=== PATIENT | male | born 1945 | race Caucasian/White ===

== ENCOUNTER 2017-10-13 16:22 | Inpatient (IN) | payer MEDICARE ==
[~2017-10-13] VITALS: Ht 172.7 cm; Wt 95.6 kg
[~2017-10-13 16:22] MED LIST: ALLO100T PO; AMLO5TAB2 PO; AMOX1TAB16 PO; BENADRYL PO; CHOL200013 PO; CLARITIN PO; EPOETIN ALFA SQ; FENO45CA2 PO; FERS325 PO; FLUT16H NASAL; FOLI0.8C PO; GLIP5TAB11 PO; HYDR-4153 PO; ICOS1CAP PO; INSU200I SQ; INSU3INS3 SQ; LABE200T PO; LOSA25TA21 PO; MAGNESIUM PO; MUCINEX; MULT-1258 PO; MYCO500T5 PO; OLOP2.5D OU; OMEGA 3 KRILL; OMEP40CA37 PO; PRED5TAB PO; ROSU20TA38 PO; SENNA PO; SITA25TA5 PO; STOOL SOFTNER PO; VIT B12 SL
[2017-10-13] MEDS ORDERED: SODIUM CHLORIDE 0.9% 1000ML 1,000 ML IV ONE (16:57)
[2017-10-13 16:58] LABS: HEMATOCRIT 28.8 % (42-54); MEAN CORPUSCULAR HEMOGLOBIN 31.5 pg (27.0-33.0); MEAN CORPUSCULAR HGB CONC 34.5 g/dL (32.0-36.0); MEAN CORPUSCULAR VOLUME 91.1 fL (79-99); NUCLEATED RED BLOOD CELLS 0.2 % (0.0-0.19); PLATELET COUNT (AUTO) 311 K/uL (130-400); RED BLOOD CELL COUNT(AUTO) 3.16 MIL/uL (4.50-6.20); RED CELL DISTRIBUTION WIDTH 15.6 % (11.0-15.5); WHITE BLOOD COUNT (AUTO) 13.5 K/uL (4.8-10.8)
[2017-10-13 17:27] LABS: BAND NEUTROPHILS % (MANUAL) 8 % (0-2); LYMPHOCYTES % (MANUAL) 3 % (22-44); MAN.DIFF COMMENT-IMPRESSION MANUAL DIFFERENTIAL; SEGMENTED NEUTROPHILS % 89 % (40-70)
[2017-10-13 17:28] LABS: PLATELET MORPHOLOGY COMMENT ADEQUATE
[2017-10-13 17:29] LABS: CREATININE 3.8 mg/dL (0.5-1.5); POTASSIUM 4.6 mmol/L (3.5-5.1)
[2017-10-13 17:34] LABS: BILIRUBIN,TOTAL 0.6 mg/dL (0.2-1.0); TOTAL PROTEIN, SERUM 6.2 g/dL (6.0-8.3)
[2017-10-13] MEDS ORDERED: ACETAMINOPHEN 325 MG TAB ONE (18:06)
[2017-10-13 18:07] LABS: APPEARANCE,URINE Cloudy (CLEAR); BILIRUBIN,URINE Negative (NEGATIVE); COLOR,URINE Yellow (YELLOW); GLUCOSE, URINE (UA) Negative (NEGATIVE); KETONES,URINE Negative (NEGATIVE); LEUKOCYTE ESTERASE ,URINE Moderate (NEGATIVE); NITRATE,URINE Negative (NEGATIVE); OCCULT BLOOD,URINE Negative (NEGATIVE); PROTEIN,URINE 300 (NEGATIVE); UROBILINOGEN,URINE 0.2 mg/dL (0.2-1.0)
[2017-10-13 18:18] LABS: AMORPHOUS SEDIMENT,UR Few /LPF (None Seen); BACTERIA,URINE Many /HPF (None Seen); MUCUS,URINE Many LPF (None Seen); RBC,URINE None Seen /HPF (0-1); WBC,URINE 26-50 /HPF (0-1)
[2017-10-13 18:19] LABS: COARSE GRANULAR CASTS,URINE 0-2 /LPF (None Seen)
[2017-10-13] MEDS ORDERED: OSELTAMIVIR PHOSPHATE 75 MG CAP ONE (18:38)
[2017-10-13] MEDS ORDERED: CEFTRIAXONE SODIUM 1 GM ONE (18:45)
[2017-10-13 21:35] VITALS: BP 128/54
[2017-10-13] MEDS: SODIUM CHLORIDE 0.9% 1000ML 1,000 ML IV SCH (21:51)
[2017-10-13] MEDS: ACETAMINOPHEN 325 MG TAB PO PRN (23:26)
[2017-10-14] VITALS: BP 152/75
[2017-10-14 04:08] LABS: HEMATOCRIT 29.2 % (42-54); MEAN CORPUSCULAR HEMOGLOBIN 29.8 pg (27.0-33.0); MEAN CORPUSCULAR HGB CONC 32.6 g/dL (32.0-36.0); MEAN CORPUSCULAR VOLUME 91.4 fL (79-99); PLATELET COUNT (AUTO) 254 K/uL (130-400); RED CELL DISTRIBUTION WIDTH 15.8 % (11.0-15.5); WHITE BLOOD COUNT (AUTO) 18.1 K/uL (4.8-10.8)
[2017-10-14 05:12] LABS: ALBUMIN 2.7 g/dL (3.5-5.0); BILIRUBIN,TOTAL 0.6 mg/dL (0.2-1.0); CREATININE 4.1 mg/dL (0.5-1.5); POTASSIUM 3.8 mmol/L (3.5-5.1); TOTAL PROTEIN, SERUM 5.5 g/dL (6.0-8.3)
[2017-10-14] MEDS: INSULIN R PO SS1 SQ SCH ×3 (07:30→21:00)
[2017-10-14 08:00] VITALS: BP 114/51
[2017-10-14] MEDS: PANTOPRAZOLE SODIUM 40 MG TABLET.DR PO SCH (10:22)
[2017-10-14] MEDS: SODIUM CHLORIDE 0.9% 1000ML 1,000 ML IV SCH ×2 (10:22→16:55)
[2017-10-14 12:00] VITALS: BP 130/46
[2017-10-14 16:00] VITALS: BP 141/67
[2017-10-14] MEDS ORDERED: MEROPENEM 1GM IVPB PREMIXED 1 GM IV SCH (16:00)
[2017-10-14] MEDS: MEROPENEM 1 GM VIAL IVP SCH (16:47)
[2017-10-14] MEDS: ACETAMINOPHEN 325 MG TAB PO PRN (16:48)
[2017-10-14] MEDS ORDERED: CEFTRIAXONE SODIUM 1 GM IVP SCH (18:00)
[2017-10-14 18:54] LABS: HEMATOCRIT 28.1 % (42-54)
[2017-10-14 20:00] VITALS: BP 131/66
[2017-10-15] VITALS (7 sets, daily range): BP systolic 124–150; BP diastolic 63–85
[2017-10-15] MEDS: MEROPENEM 1 GM VIAL IVP SCH ×2 (03:05→18:12)
[2017-10-15] MEDS: ACETAMINOPHEN 325 MG TAB PO PRN ×2 (03:06→12:27)
[2017-10-15] MEDS: INSULIN R PO SS1 SQ SCH ×4 (06:47→21:21)
[2017-10-15] MEDS: SODIUM CHLORIDE 0.9% 1000ML 1,000 ML IV SCH (06:48)
[2017-10-15] MEDS: ICOSAPENT ETHYL 2 GM PO SCH ×2 (09:00→21:00)
[2017-10-15] MEDS: FOLIC ACID 0.8 MG PO SCH (09:00)
[2017-10-15 09:06] LABS: HEMATOCRIT 26.4 % (42-54); MEAN CORPUSCULAR HEMOGLOBIN 30.9 pg (27.0-33.0); MEAN CORPUSCULAR HGB CONC 33.2 g/dL (32.0-36.0); MEAN CORPUSCULAR VOLUME 93.2 fL (79-99); PLATELET COUNT (AUTO) 212 K/uL (130-400); RED BLOOD CELL COUNT(AUTO) 2.83 MIL/uL (4.50-6.20); RED CELL DISTRIBUTION WIDTH 16.3 % (11.0-15.5); WHITE BLOOD COUNT (AUTO) 19.1 K/uL (4.8-10.8)
[2017-10-15 09:18] LABS: POTASSIUM 3.6 mmol/L (3.5-5.1)
[2017-10-15] MEDS: HOME MEDICATION 1 EACH PO SCH (09:24)
[2017-10-15] MEDS: MYCOPHENOLATE MOFETIL 250 MG CAPSULE PO SCH ×2 (09:42→21:24)
[2017-10-15] MEDS: FERROUS SULFATE 325 MG TABLET.DR PO SCH ×2 (09:42→18:13)
[2017-10-15] MEDS: LABETALOL HCL 200 MG TABLET PO SCH ×2 (09:42→21:25)
[2017-10-15] MEDS: PANTOPRAZOLE SODIUM 40 MG TABLET.DR PO SCH (09:42)
[2017-10-15] MEDS: PREDNISONE 5 MG TABLET PO SCH (09:43)
[2017-10-15] MEDS: ALLOPURINOL 100 MG TABLET PO SCH (09:43)
[2017-10-15 10:08] LABS: BAND NEUTROPHILS % (MANUAL) 4 % (0-2); LYMPHOCYTES % (MANUAL) 2 % (22-44); MAN.DIFF COMMENT-IMPRESSION MANUAL DIFFERENTIAL; MONOCYTES % (MANUAL) 3 % (2-9); PLATELET MORPHOLOGY COMMENT ADEQUATE; SEGMENTED NEUTROPHILS % 91 % (40-70)
[2017-10-15] MEDS ORDERED: SODIUM BICARB 8.4% 50ML SYRING 75 MEQ in 1/2 NORMAL SALINE 1,000 ML IV SCH (10:30)
[2017-10-15 10:54] LABS: ABG OXYGEN SATURATION 94.4 % (95.0-99.0); ABG PCO2 21 mmHg (35-48)
[2017-10-15] MEDS: SODIUM BICARB 8.4% 50ML SYRING 75 MEQ in 1/2 NORMAL SALINE 1,000 ML IVP SCH ×2 (12:27→23:12)
[2017-10-15] MEDS: FENOFIBRIC ACID PO SCH (21:00)
[2017-10-15] MEDS: FLUTICASONE PROPIONATE 50MCG/SPRAY 16 GM BOTTLE EN SCH (21:24)
[2017-10-15] MEDS: AMLODIPINE BESYLATE 5 MG TAB PO SCH (21:25)
[2017-10-15] MEDS: ATORVASTATIN CALCIUM 40 MG TABLET PO SCH (21:26)
[2017-10-16 03:45] LABS: HEMATOCRIT 25.8 % (42-54); MEAN CORPUSCULAR HEMOGLOBIN 29.8 pg (27.0-33.0); MEAN CORPUSCULAR HGB CONC 33.2 g/dL (32.0-36.0); MEAN CORPUSCULAR VOLUME 89.8 fL (79-99); NUCLEATED RED BLOOD CELLS 0.1 % (0.0-0.19); PLATELET COUNT (AUTO) 214 K/uL (130-400); RED BLOOD CELL COUNT(AUTO) 2.87 MIL/uL (4.50-6.20); RED CELL DISTRIBUTION WIDTH 16.1 % (11.0-15.5); WHITE BLOOD COUNT (AUTO) 18.5 K/uL (4.8-10.8)
[2017-10-16 03:50] VITALS: BP 154/75
[2017-10-16 03:51] LABS: CREATININE 4.6 mg/dL (0.5-1.5)
[2017-10-16 05:05] LABS: BAND NEUTROPHILS % (MANUAL) 13 % (0-2); LYMPHOCYTES % (MANUAL) 4 % (22-44); MAN.DIFF COMMENT-IMPRESSION MANUAL DIFFERENTIAL; MONOCYTES % (MANUAL) 1 % (2-9); PLATELET MORPHOLOGY COMMENT ADEQUATE; SEGMENTED NEUTROPHILS % 82 % (40-70)
[2017-10-16] MEDS: MEROPENEM 1 GM VIAL IVP SCH ×2 (05:30→16:57)
[2017-10-16] MEDS: INSULIN R PO SS1 SQ SCH ×4 (05:57→23:05)
[2017-10-16 07:00] VITALS: BP 167/71
[2017-10-16] MEDS: ICOSAPENT ETHYL 2 GM PO SCH ×2 (09:00→21:00)
[2017-10-16] MEDS: HOME MEDICATION 1 EACH PO SCH (09:00)
[2017-10-16] MEDS: FOLIC ACID 0.8 MG PO SCH (09:00)
[2017-10-16] MEDS: ACETAMINOPHEN 325 MG TAB PO PRN (09:57)
[2017-10-16] MEDS: LABETALOL HCL 200 MG TABLET PO SCH ×2 (09:57→22:58)
[2017-10-16] MEDS: PREDNISONE 5 MG TABLET PO SCH (09:58)
[2017-10-16] MEDS: MYCOPHENOLATE MOFETIL 250 MG CAPSULE PO SCH ×2 (09:58→22:56)
[2017-10-16] MEDS: MULTIVITAMIN WITH MINERALS TABLET PO SCH (09:58)
[2017-10-16] MEDS: ALLOPURINOL 100 MG TABLET PO SCH (09:58)
[2017-10-16] MEDS: PANTOPRAZOLE SODIUM 40 MG TABLET.DR PO SCH (09:58)
[2017-10-16] MEDS: FERROUS SULFATE 325 MG TABLET.DR PO SCH ×2 (09:58→16:57)
[2017-10-16 11:00] VITALS: BP 140/65
[2017-10-16] MEDS: SODIUM BICARB 8.4% 50ML SYRING 75 MEQ in 1/2 NORMAL SALINE 1,000 ML IVP SCH ×2 (11:04→23:06)
[2017-10-16 16:00] VITALS: BP 155/73
[2017-10-16 19:28] VITALS: BP 135/67
[2017-10-16] MEDS: FENOFIBRIC ACID PO SCH (21:00)
[2017-10-16] MEDS: FLUTICASONE PROPIONATE 50MCG/SPRAY 16 GM BOTTLE EN SCH (21:00)
[2017-10-16] MEDS: ATORVASTATIN CALCIUM 40 MG TABLET PO SCH (22:56)
[2017-10-16] MEDS: AMLODIPINE BESYLATE 5 MG TAB PO SCH (22:56)
[2017-10-17 00:07] VITALS: BP 133/70
[2017-10-17 03:45] VITALS: BP 141/67
[2017-10-17] MEDS: MEROPENEM 1 GM VIAL IVP SCH ×2 (04:26→17:22)
[2017-10-17 04:31] LABS: HEMATOCRIT 24.5 % (42-54); MEAN CORPUSCULAR HEMOGLOBIN 31.5 pg (27.0-33.0); MEAN CORPUSCULAR HGB CONC 35.2 g/dL (32.0-36.0); MEAN CORPUSCULAR VOLUME 89.4 fL (79-99); PLATELET COUNT (AUTO) 210 K/uL (130-400); RED BLOOD CELL COUNT(AUTO) 2.74 MIL/uL (4.50-6.20); RED CELL DISTRIBUTION WIDTH 15.6 % (11.0-15.5); WHITE BLOOD COUNT (AUTO) 13.3 K/uL (4.8-10.8)
[2017-10-17 04:47] LABS: ALBUMIN 2.1 g/dL (3.5-5.0); BILIRUBIN,TOTAL 0.5 mg/dL (0.2-1.0); POTASSIUM 3.6 mmol/L (3.5-5.1); TOTAL PROTEIN, SERUM 5.5 g/dL (6.0-8.3)
[2017-10-17 05:14] LABS: BAND NEUTROPHILS % (MANUAL) 13 % (0-2); LYMPHOCYTES % (MANUAL) 15 % (22-44); MONOCYTES % (MANUAL) 3 % (2-9); SEGMENTED NEUTROPHILS % 69 % (40-70)
[2017-10-17 05:15] LABS: MAN.DIFF COMMENT-IMPRESSION MANUAL DIFFERENTIAL; PLATELET MORPHOLOGY COMMENT ADEQUATE
[2017-10-17] MEDS: INSULIN R PO SS1 SQ SCH ×4 (06:11→22:21)
[2017-10-17] MEDS: FOLIC ACID 0.8 MG PO SCH (09:00)
[2017-10-17] MEDS: HOME MEDICATION 1 EACH PO SCH (09:00)
[2017-10-17] MEDS: ICOSAPENT ETHYL 2 GM PO SCH ×2 (09:00→21:00)
[2017-10-17] MEDS: ALLOPURINOL 100 MG TABLET PO SCH (10:48)
[2017-10-17] MEDS: MYCOPHENOLATE MOFETIL 250 MG CAPSULE PO SCH ×2 (10:49→22:15)
[2017-10-17] MEDS: PREDNISONE 5 MG TABLET PO SCH (10:49)
[2017-10-17] MEDS: MULTIVITAMIN WITH MINERALS TABLET PO SCH (10:49)
[2017-10-17] MEDS: FERROUS SULFATE 325 MG TABLET.DR PO SCH ×2 (10:50→17:22)
[2017-10-17] MEDS: LABETALOL HCL 200 MG TABLET PO SCH ×2 (10:50→22:15)
[2017-10-17] MEDS: PANTOPRAZOLE SODIUM 40 MG TABLET.DR PO SCH (10:50)
[2017-10-17 11:00] VITALS: BP 152/74
[2017-10-17] MEDS: SODIUM CHLORIDE 0.9% 1000ML 1,000 ML IV SCH (13:35)
[2017-10-17 16:00] VITALS: BP 148/59
[2017-10-17 19:10] VITALS: BP 153/61
[2017-10-17] MEDS: FENOFIBRIC ACID PO SCH (21:00)
[2017-10-17] MEDS: AMLODIPINE BESYLATE 5 MG TAB PO SCH (22:15)
[2017-10-17] MEDS: ATORVASTATIN CALCIUM 40 MG TABLET PO SCH (22:15)
[2017-10-17] MEDS: FLUTICASONE PROPIONATE 50MCG/SPRAY 16 GM BOTTLE EN SCH (22:15)
[2017-10-18] VITALS (8 sets, daily range): BP systolic 128–173; BP diastolic 61–84
[2017-10-18] MEDS: SODIUM CHLORIDE 0.9% 1000ML 1,000 ML IV SCH ×2 (02:46→12:02)
[2017-10-18] MEDS: MEROPENEM 1 GM VIAL IVP SCH ×2 (04:40→16:24)
[2017-10-18 05:12] LABS: HEMATOCRIT 25.4 % (42-54); MEAN CORPUSCULAR HEMOGLOBIN 30.3 pg (27.0-33.0); MEAN CORPUSCULAR HGB CONC 33.8 g/dL (32.0-36.0); MEAN CORPUSCULAR VOLUME 89.5 fL (79-99); NUCLEATED RED BLOOD CELLS 0.1 % (0.0-0.19); PLATELET COUNT (AUTO) 229 K/uL (130-400); RED BLOOD CELL COUNT(AUTO) 2.84 MIL/uL (4.50-6.20); RED CELL DISTRIBUTION WIDTH 15.5 % (11.0-15.5); WHITE BLOOD COUNT (AUTO) 8.3 K/uL (4.8-10.8)
[2017-10-18 05:22] LABS: BAND NEUTROPHILS % (MANUAL) 1 % (0-2); EOSINOPHILS % (MANUAL) 2 % (1-6); LYMPHOCYTES % (MANUAL) 18 % (22-44); MONOCYTES % (MANUAL) 8 % (2-9); SEGMENTED NEUTROPHILS % 71 % (40-70)
[2017-10-18 05:23] LABS: MAN.DIFF COMMENT-IMPRESSION MANUAL DIFFERENTIAL; PLATELET MORPHOLOGY COMMENT ADEQUATE
[2017-10-18 05:24] LABS: BILIRUBIN,TOTAL 0.5 mg/dL (0.2-1.0); CREATININE 3.4 mg/dL (0.5-1.5); POTASSIUM 3.7 mmol/L (3.5-5.1); TOTAL PROTEIN, SERUM 5.1 g/dL (6.0-8.3)
[2017-10-18] MEDS: INSULIN R PO SS1 SQ SCH ×4 (06:08→22:54)
[2017-10-18] MEDS: ICOSAPENT ETHYL 2 GM PO SCH ×2 (09:00→21:00)
[2017-10-18] MEDS: FOLIC ACID 0.8 MG PO SCH (09:00)
[2017-10-18] MEDS: HOME MEDICATION 1 EACH PO SCH (09:00)
[2017-10-18] MEDS: MULTIVITAMIN WITH MINERALS TABLET PO SCH (10:23)
[2017-10-18] MEDS: FERROUS SULFATE 325 MG TABLET.DR PO SCH ×2 (10:23→16:24)
[2017-10-18] MEDS: PANTOPRAZOLE SODIUM 40 MG TABLET.DR PO SCH (10:24)
[2017-10-18] MEDS: MYCOPHENOLATE MOFETIL 250 MG CAPSULE PO SCH ×2 (10:24→22:44)
[2017-10-18] MEDS: LABETALOL HCL 200 MG TABLET PO SCH ×2 (10:24→22:45)
[2017-10-18] MEDS: ALLOPURINOL 100 MG TABLET PO SCH (10:24)
[2017-10-18] MEDS: PREDNISONE 5 MG TABLET PO SCH (10:24)
[2017-10-18] MEDS: FENOFIBRIC ACID PO SCH (21:00)
[2017-10-18] MEDS: ACETAMINOPHEN 325 MG TAB PO PRN (22:44)
[2017-10-18] MEDS: AMLODIPINE BESYLATE 5 MG TAB PO SCH (22:45)
[2017-10-18] MEDS: FLUTICASONE PROPIONATE 50MCG/SPRAY 16 GM BOTTLE EN SCH (22:45)
[2017-10-18] MEDS: ATORVASTATIN CALCIUM 40 MG TABLET PO SCH (22:45)
[2017-10-19] VITALS (7 sets, daily range): BP systolic 134–162; BP diastolic 55–84
[2017-10-19] MEDS: MEROPENEM 1 GM VIAL IVP SCH (05:20)
[2017-10-19] MEDS: ALLOPURINOL 100 MG TABLET PO SCH (08:04)
[2017-10-19] MEDS: HYDRALAZINE HCL 25 MG TABLET PO SCH ×2 (08:05→22:39)
[2017-10-19] MEDS: PREDNISONE 5 MG TABLET PO SCH (08:05)
[2017-10-19] MEDS: FERROUS SULFATE 325 MG TABLET.DR PO SCH ×2 (08:05→17:00)
[2017-10-19] MEDS: PANTOPRAZOLE SODIUM 40 MG TABLET.DR PO SCH (08:05)
[2017-10-19] MEDS: MYCOPHENOLATE MOFETIL 250 MG CAPSULE PO SCH ×2 (08:05→22:39)
[2017-10-19] MEDS: LABETALOL HCL 200 MG TABLET PO SCH ×2 (08:06→22:39)
[2017-10-19] MEDS: INSULIN R PO SS1 SQ SCH ×4 (08:12→22:32)
[2017-10-19] MEDS: ICOSAPENT ETHYL 2 GM PO SCH ×2 (08:13→21:00)
[2017-10-19] MEDS: MULTIVITAMIN WITH MINERALS TABLET PO SCH (08:13)
[2017-10-19] MEDS: FOLIC ACID 0.8 MG PO SCH (08:14)
[2017-10-19] MEDS: HOME MEDICATION 1 EACH PO SCH (08:14)
[2017-10-19] MEDS ORDERED: CEFTRIAXONE 1GM/D5W 50ML 50 ML IV SCH (15:00)
[2017-10-19] MEDS ORDERED: CEFTRIAXONE SODIUM 1 GM IVP SCH (15:15)
[2017-10-19] MEDS: FENOFIBRIC ACID PO SCH (21:00)
[2017-10-19] MEDS ORDERED: INSULIN GLARGINE 100 UNITS/ML 10 ML VIAL SQ SCH (21:00)
[2017-10-19] MEDS ORDERED: EPOETIN ALFA 20,000 UNIT/ML VIAL SQ ONE (21:00)
[2017-10-19] MEDS: ATORVASTATIN CALCIUM 40 MG TABLET PO SCH (22:38)
[2017-10-19] MEDS: AMLODIPINE BESYLATE 5 MG TAB PO SCH (22:39)
[2017-10-19] MEDS: FLUTICASONE PROPIONATE 50MCG/SPRAY 16 GM BOTTLE EN SCH (22:40)
[2017-10-19] MEDS: ACETAMINOPHEN 325 MG TAB PO PRN (22:42)
[2017-10-20 03:35] VITALS: BP 154/69
[2017-10-20 04:22] LABS: HEMATOCRIT 26.4 % (42-54); MEAN CORPUSCULAR HEMOGLOBIN 30.6 pg (27.0-33.0); MEAN CORPUSCULAR HGB CONC 34.5 g/dL (32.0-36.0); MEAN CORPUSCULAR VOLUME 88.7 fL (79-99); PLATELET COUNT (AUTO) 329 K/uL (130-400); RED BLOOD CELL COUNT(AUTO) 2.97 MIL/uL (4.50-6.20); RED CELL DISTRIBUTION WIDTH 15.2 % (11.0-15.5); WHITE BLOOD COUNT (AUTO) 9.9 K/uL (4.8-10.8)
[2017-10-20 04:27] LABS: CREATININE 3.3 mg/dL (0.5-1.5); POTASSIUM 3.8 mmol/L (3.5-5.1)
[2017-10-20 04:35] LABS: BAND NEUTROPHILS % (MANUAL) 1 % (0-2); EOSINOPHILS % (MANUAL) 5 % (1-6); LYMPHOCYTES % (MANUAL) 25 % (22-44); MAN.DIFF COMMENT-IMPRESSION MANUAL DIFFERENTIAL; MONOCYTES % (MANUAL) 4 % (2-9); PLATELET MORPHOLOGY COMMENT ADEQUATE; SEGMENTED NEUTROPHILS % 65 % (40-70)
[2017-10-20] MEDS: INSULIN R PO SS1 SQ SCH (05:17)
[2017-10-20] MEDS ORDERED: FUROSEMIDE 10 MG/ML 4ML VIAL IV SCH (06:30)
[2017-10-20 08:29] VITALS: BP 157/65
[2017-12-03] MEDS ORDERED: ROSU20TA38 PO (03:14)
[2017-12-03] MEDS ORDERED: LABE200T PO (03:14)
== END 2017-10-20 10:45 | disposition home or self-care (01) | DRG 871 ==
LOC: EDH 16:22 → EDHIP 18:50 → OBSVTOIN 18:50 → 3AH 20:21
PROVIDERS: ADMIT Internal Medicine Nephrology; ATTEND Internal Medicine Nephrology
DX: A41.9 Sepsis, unspecified organism (principal); N18.6 End stage renal disease; J15.0 Pneumonia due to Klebsiella pneumoniae; N17.9 Acute kidney failure, unspecified; E87.2 Acidosis; E11.22 Type 2 diabetes mellitus with diabetic chronic kidney disease; I12.0 Hypertensive chronic kidney disease with stage 5 chronic kidney disease or end stage renal disease; Z94.0 Kidney transplant status; N39.0 Urinary tract infection, site not specified; D63.1 Anemia in chronic kidney disease; B96.1 Klebsiella pneumoniae [K. pneumoniae] as the cause of diseases classified elsewhere; B96.89 Other specified bacterial agents as the cause of diseases classified elsewhere; E78.5 Hyperlipidemia, unspecified; J45.909 Unspecified asthma, uncomplicated; N28.89 Other specified disorders of kidney and ureter; N31.2 Flaccid neuropathic bladder, not elsewhere classified; N40.0 Benign prostatic hyperplasia without lower urinary tract symptoms; N50.89 Other specified disorders of the male genital organs; Z74.01 Bed confinement status; Z99.2 Dependence on renal dialysis; Z92.3 Personal history of irradiation; Z85.828 Personal history of other malignant neoplasm of skin; Z85.51 Personal history of malignant neoplasm of bladder; Z85.46 Personal history of malignant neoplasm of prostate; Z83.3 Family history of diabetes mellitus; Z82.49 Family history of ischemic heart disease and other diseases of the circulatory system; Z80.8 Family history of malignant neoplasm of other organs or systems; Z80.0 Family history of malignant neoplasm of digestive organs
CPT/HCPCS: 36415; 36600; 71046; 71250; 74176; 76770; 76870; 80048; 80053; 81001; 82270; 82803; 82948; 83605; 85014; 85018; 85025; 85027; 87040; 87046; 87088; 87186; 87205; 87507; 87804; A4218; A4344; J0696; J0885; J1815; J1940; J2185; J3490; J7030; J7512; J7517

== ENCOUNTER 2017-11-08 21:14 | Inpatient (IN) | payer MEDICARE ==
[~2017-11-08] VITALS: Ht 170.2 cm; Wt 95.1 kg
[~2017-11-08 21:14] MED LIST changes: -AMOX1TAB16 PO; -LOSA25TA21 PO
[2017-11-08] MEDS ORDERED: ACETAMINOPHEN 325 MG TAB ONE (21:38)
[2017-11-08] MEDS ORDERED: SODIUM CHLORIDE 0.9% 1000ML 1,000 ML IV ONE (21:38)
[2017-11-08 21:39] LABS: BASOPHILS % (AUTO) 0.3 % (0.0-5.0); EOSINOPHILS % (AUTO) 0.1 % (0.0-8.0); HEMATOCRIT 28.9 % (42-54); LYMPHOCYTES % (AUTO) 3.5 % (21.0-51.0); MEAN CORPUSCULAR HEMOGLOBIN 29.7 pg (27.0-33.0); MEAN CORPUSCULAR HGB CONC 32.7 g/dL (32.0-36.0); MEAN CORPUSCULAR VOLUME 90.8 fL (79-99); MONOCYTES % (AUTO) 8.9 % (3.0-13.0); NEUTROPHILS % (AUTO) 87.2 % (40.0-77.0); NUCLEATED RED BLOOD CELLS 0.1 % (0.0-0.19); PLATELET COUNT (AUTO) 215 K/uL (130-400); RED BLOOD CELL COUNT(AUTO) 3.18 MIL/uL (4.50-6.20); RED CELL DISTRIBUTION WIDTH 15.8 % (11.0-15.5)
[2017-11-08 22:09] LABS: CREATININE 4.4 mg/dL (0.5-1.5); POTASSIUM 4.2 mmol/L (3.5-5.1)
[2017-11-08 22:14] LABS: ALBUMIN 2.8 g/dL (3.5-5.0); BILIRUBIN,TOTAL 0.5 mg/dL (0.2-1.0); TOTAL PROTEIN, SERUM 6.4 g/dL (6.0-8.3)
[2017-11-08] MEDS ORDERED: CEFTRIAXONE SODIUM 1 GM ONE (22:43)
[2017-11-09 00:53] LABS: APPEARANCE,URINE Clear (CLEAR); BILIRUBIN,URINE Negative (NEGATIVE); COLOR,URINE Yellow (YELLOW); GLUCOSE, URINE (UA) Negative (NEGATIVE); KETONES,URINE Negative (NEGATIVE); LEUKOCYTE ESTERASE ,URINE Small (NEGATIVE); NITRATE,URINE Negative (NEGATIVE); OCCULT BLOOD,URINE Small (NEGATIVE); PH,URINE 5.5 (5.0-8.0); PROTEIN,URINE >=1000 (NEGATIVE); UROBILINOGEN,URINE 0.2 mg/dL (0.2-1.0)
[2017-11-09 00:56] LABS: BACTERIA,URINE Few /HPF (None Seen); RBC,URINE None Seen /HPF (0-1); SQUAMOUS EPITHELIAL CELL,UR Rare /HPF (0-2); WBC,URINE 26-50 /HPF (0-1)
[2017-11-09] MEDS ORDERED: GLUCAGON 1MG KIT 1 MG ML IM PRN (02:30)
[2017-11-09] MEDS ORDERED: DEXTROSE 50%-WATER 50 ML DISP.SYRIN IV PRN (02:30)
[2017-11-09] MEDS: MEROPENEM 1 GM VIAL IVP SCH (03:00)
[2017-11-09] MEDS: INSULIN R PO SS1 SQ SCH ×4 (07:30→21:00)
[2017-11-09 07:33] LABS: BASOPHILS % (AUTO) 0.3 % (0.0-5.0); EOSINOPHILS % (AUTO) 0.3 % (0.0-8.0); HEMATOCRIT 26.8 % (42-54); LYMPHOCYTES % (AUTO) 3.7 % (21.0-51.0); MEAN CORPUSCULAR HEMOGLOBIN 30.8 pg (27.0-33.0); MEAN CORPUSCULAR HGB CONC 33.5 g/dL (32.0-36.0); MEAN CORPUSCULAR VOLUME 91.9 fL (79-99); MONOCYTES % (AUTO) 9.9 % (3.0-13.0); NEUTROPHILS % (AUTO) 85.8 % (40.0-77.0); PLATELET COUNT (AUTO) 187 K/uL (130-400); RED BLOOD CELL COUNT(AUTO) 2.91 MIL/uL (4.50-6.20); RED CELL DISTRIBUTION WIDTH 15.6 % (11.0-15.5); WHITE BLOOD COUNT (AUTO) 25.1 K/uL (4.8-10.8)
[2017-11-09 07:57] LABS: CREATININE 4.5 mg/dL (0.5-1.5); POTASSIUM 3.9 mmol/L (3.5-5.1)
[2017-11-09] MEDS: SODIUM CHLORIDE 0.9% 1000ML 1,000 ML IV SCH ×2 (08:00→18:00)
[2017-11-09 08:03] LABS: ALBUMIN 2.4 g/dL (3.5-5.0); BILIRUBIN,TOTAL 0.5 mg/dL (0.2-1.0); TOTAL PROTEIN, SERUM 5.8 g/dL (6.0-8.3)
[2017-11-09 08:50] VITALS: BP 157/87
[2017-11-09] MEDS ORDERED: OLOPATADINE HCL 0.1% 5ML DROPS OU PRN (09:00)
[2017-11-09] MEDS: **HM** VASCEPA 2GM PO SCH ×2 (09:00→21:00)
[2017-11-09] MEDS: FERROUS SULFATE 325 MG TABLET.DR PO SCH ×2 (09:00→21:00)
[2017-11-09] MEDS: HYDRALAZINE HCL 25 MG TABLET PO SCH ×2 (09:00→21:00)
[2017-11-09] MEDS ORDERED: PANTOPRAZOLE 40 MG/VIAL IVP SCH (09:00)
[2017-11-09] MEDS: FOLIC ACID 1 MG TABLET PO SCH (09:00)
[2017-11-09] MEDS: ALLOPURINOL 100 MG TABLET PO SCH (09:00)
[2017-11-09] MEDS: MYCOPHENOLATE MOFETIL 250 MG CAPSULE PO SCH ×2 (09:00→21:00)
[2017-11-09] MEDS: MULTIVITAMIN WITH MINERALS TABLET PO SCH (09:00)
[2017-11-09] MEDS: **HM** VIT D3 2000 UNITS PO SCH (09:00)
[2017-11-09] MEDS: PREDNISONE 5 MG TABLET PO SCH (09:00)
[2017-11-09] MEDS: MAGNESIUM OXIDE 400 MG TABLET PO SCH ×2 (09:00→21:00)
[2017-11-09] MEDS: CYANOCOBALAMIN 5000 MCG SL SCH (09:00)
[2017-11-09] MEDS ORDERED: HYDRALAZINE HCL 25 MG TABLET ONE ×2 (10:24→20:50)
[2017-11-09] MEDS ORDERED: LABETALOL HCL 200 MG TABLET ONE (10:24)
[2017-11-09] MEDS ORDERED: ACETAMINOPHEN 325 MG TAB ONE (10:29)
[2017-11-09] MEDS ORDERED: MEROPENEM 1 GM VIAL ONE (10:29)
[2017-11-09] MEDS ORDERED: SODIUM CHLORIDE 0.9% 100 ML IV ONE (10:29)
[2017-11-09] MEDS ORDERED: AMLODIPINE BESYLATE 5 MG TAB PO ONE (20:50)
[2017-11-09] MEDS: FLUTICASONE PROPIONATE 50MCG/SPRAY 16 GM BOTTLE EN SCH (21:00)
[2017-11-09] MEDS: FENOFIBRIC ACID PO SCH (21:00)
[2017-11-09] MEDS: STOOL SOFTNER PO SCH (21:00)
[2017-11-09] MEDS: AMLODIPINE BESYLATE 5 MG TAB PO SCH (21:00)
[2017-11-09] MEDS: SENNOSIDES 8.6 MG TABLET PO SCH (21:00)
[2017-11-09] MEDS: ATORVASTATIN CALCIUM 40 MG TABLET PO SCH (21:00)
[2017-11-09 22:25] VITALS: BP 185/82
[2017-11-09] MEDS: LABETALOL HCL 200 MG TABLET PO SCH (22:46)
[2017-11-09] MEDS: ACETAMINOPHEN 325 MG TAB PO PRN (22:52)
[2017-11-10] VITALS: BP 142/61
[2017-11-10] MEDS: MEROPENEM 1 GM VIAL IVP SCH (02:47)
[2017-11-10] MEDS: SODIUM CHLORIDE 0.9% 1000ML 1,000 ML IV SCH ×3 (03:27→15:57)
[2017-11-10 04:00] VITALS: BP 133/69
[2017-11-10] MEDS: INSULIN R PO SS1 SQ SCH ×4 (06:38→22:17)
[2017-11-10 07:15] LABS: HEMATOCRIT 26.8 % (42-54); MEAN CORPUSCULAR HEMOGLOBIN 29.8 pg (27.0-33.0); MEAN CORPUSCULAR VOLUME 90.5 fL (79-99); PLATELET COUNT (AUTO) 190 K/uL (130-400); RED BLOOD CELL COUNT(AUTO) 2.97 MIL/uL (4.50-6.20); RED CELL DISTRIBUTION WIDTH 15.6 % (11.0-15.5); WHITE BLOOD COUNT (AUTO) 16.5 K/uL (4.8-10.8)
[2017-11-10 07:23] LABS: CREATININE 5.2 mg/dL (0.5-1.5); POTASSIUM 4.1 mmol/L (3.5-5.1)
[2017-11-10 08:00] VITALS: BP 151/79
[2017-11-10] MEDS: **HM** VIT D3 2000 UNITS PO SCH (09:00)
[2017-11-10] MEDS: CYANOCOBALAMIN 5000 MCG SL SCH (09:00)
[2017-11-10] MEDS: **HM** VASCEPA 2GM PO SCH ×2 (09:00→21:00)
[2017-11-10] MEDS: HYDRALAZINE HCL 25 MG TABLET PO SCH ×2 (09:57→22:20)
[2017-11-10] MEDS: MULTIVITAMIN WITH MINERALS TABLET PO SCH (09:58)
[2017-11-10] MEDS: MYCOPHENOLATE MOFETIL 250 MG CAPSULE PO SCH ×2 (09:58→22:20)
[2017-11-10] MEDS: PREDNISONE 5 MG TABLET PO SCH (09:58)
[2017-11-10] MEDS: ALLOPURINOL 100 MG TABLET PO SCH (09:58)
[2017-11-10] MEDS: PANTOPRAZOLE SODIUM 40 MG TABLET.DR PO SCH (09:58)
[2017-11-10] MEDS: FOLIC ACID 1 MG TABLET PO SCH (09:58)
[2017-11-10] MEDS: LABETALOL HCL 200 MG TABLET PO SCH ×2 (09:59→22:21)
[2017-11-10] MEDS: FERROUS SULFATE 325 MG TABLET.DR PO SCH ×2 (09:59→22:21)
[2017-11-10] MEDS: MAGNESIUM OXIDE 400 MG TABLET PO SCH ×2 (09:59→22:21)
[2017-11-10] MEDS: ACETAMINOPHEN 325 MG TAB PO PRN ×2 (10:06→22:31)
[2017-11-10 11:00] VITALS: BP 113/53
[2017-11-10 16:00] VITALS: BP 156/72
[2017-11-10 19:00] VITALS: BP 164/84
[2017-11-10] MEDS: FENOFIBRIC ACID PO SCH (21:00)
[2017-11-10] MEDS: FLUTICASONE PROPIONATE 50MCG/SPRAY 16 GM BOTTLE EN SCH (21:00)
[2017-11-10] MEDS: STOOL SOFTNER PO SCH (21:00)
[2017-11-10] MEDS: ATORVASTATIN CALCIUM 40 MG TABLET PO SCH (22:20)
[2017-11-10] MEDS: SENNOSIDES 8.6 MG TABLET PO SCH (22:21)
[2017-11-10] MEDS: AMLODIPINE BESYLATE 5 MG TAB PO SCH (22:22)
[2017-11-11] VITALS: BP 127/62
[2017-11-11] MEDS: SODIUM CHLORIDE 0.9% 1000ML 1,000 ML IV SCH ×3 (02:38→22:33)
[2017-11-11] MEDS: MEROPENEM 1 GM VIAL IVP SCH (02:38)
[2017-11-11 04:00] VITALS: BP 143/72
[2017-11-11 04:13] LABS: BASOPHILS % (AUTO) 0.3 % (0.0-5.0); EOSINOPHILS % (AUTO) 0.9 % (0.0-8.0); HEMATOCRIT 25.7 % (42-54); LYMPHOCYTES % (AUTO) 5.4 % (21.0-51.0); MEAN CORPUSCULAR HEMOGLOBIN 29.4 pg (27.0-33.0); MEAN CORPUSCULAR HGB CONC 32.6 g/dL (32.0-36.0); MEAN CORPUSCULAR VOLUME 90.4 fL (79-99); MONOCYTES % (AUTO) 11.8 % (3.0-13.0); NEUTROPHILS % (AUTO) 81.6 % (40.0-77.0); PLATELET COUNT (AUTO) 217 K/uL (130-400); RED BLOOD CELL COUNT(AUTO) 2.85 MIL/uL (4.50-6.20); RED CELL DISTRIBUTION WIDTH 15.5 % (11.0-15.5); WHITE BLOOD COUNT (AUTO) 13.7 K/uL (4.8-10.8)
[2017-11-11 04:18] LABS: CREATININE 5.1 mg/dL (0.5-1.5); POTASSIUM 4.2 mmol/L (3.5-5.1)
[2017-11-11] MEDS: INSULIN R PO SS1 SQ SCH ×4 (06:14→22:54)
[2017-11-11 08:04] VITALS: BP 178/85
[2017-11-11] MEDS: **HM** VIT D3 2000 UNITS PO SCH (09:00)
[2017-11-11] MEDS: **HM** VASCEPA 2GM PO SCH ×2 (09:00→21:00)
[2017-11-11] MEDS: CYANOCOBALAMIN 5000 MCG SL SCH (09:00)
[2017-11-11] MEDS: MYCOPHENOLATE MOFETIL 250 MG CAPSULE PO SCH ×2 (11:36→22:30)
[2017-11-11] MEDS: PREDNISONE 5 MG TABLET PO SCH (11:36)
[2017-11-11] MEDS: LABETALOL HCL 200 MG TABLET PO SCH ×2 (11:36→22:32)
[2017-11-11] MEDS: FOLIC ACID 1 MG TABLET PO SCH (11:36)
[2017-11-11] MEDS: MAGNESIUM OXIDE 400 MG TABLET PO SCH ×2 (11:36→22:30)
[2017-11-11] MEDS: PANTOPRAZOLE SODIUM 40 MG TABLET.DR PO SCH (11:36)
[2017-11-11] MEDS: FERROUS SULFATE 325 MG TABLET.DR PO SCH ×2 (11:37→22:30)
[2017-11-11] MEDS: MULTIVITAMIN WITH MINERALS TABLET PO SCH (11:37)
[2017-11-11] MEDS: ALLOPURINOL 100 MG TABLET PO SCH (11:37)
[2017-11-11] MEDS: HYDRALAZINE HCL 25 MG TABLET PO SCH ×2 (11:37→22:30)
[2017-11-11 11:46] VITALS: BP 167/80
[2017-11-11 16:12] VITALS: BP 153/73
[2017-11-11 19:25] VITALS: BP 158/75
[2017-11-11] MEDS: FLUTICASONE PROPIONATE 50MCG/SPRAY 16 GM BOTTLE EN SCH (21:00)
[2017-11-11] MEDS: FENOFIBRIC ACID PO SCH (21:00)
[2017-11-11] MEDS: STOOL SOFTNER PO SCH (21:00)
[2017-11-11] MEDS: SENNOSIDES 8.6 MG TABLET PO SCH (22:29)
[2017-11-11] MEDS: ATORVASTATIN CALCIUM 40 MG TABLET PO SCH (22:30)
[2017-11-11] MEDS: AMLODIPINE BESYLATE 5 MG TAB PO SCH (22:31)
[2017-11-12] VITALS (8 sets, daily range): BP systolic 146–184; BP diastolic 67–81
[2017-11-12] MEDS: SODIUM CHLORIDE 0.9% 1000ML 1,000 ML IV SCH ×2 (03:23→16:00)
[2017-11-12] MEDS: MEROPENEM 1 GM VIAL IVP SCH (03:23)
[2017-11-12 04:00] LABS: BASOPHILS % (AUTO) 0.5 % (0.0-5.0); EOSINOPHILS % (AUTO) 1.3 % (0.0-8.0); HEMATOCRIT 26.1 % (42-54); LYMPHOCYTES % (AUTO) 8.6 % (21.0-51.0); MEAN CORPUSCULAR HEMOGLOBIN 29.9 pg (27.0-33.0); MEAN CORPUSCULAR HGB CONC 33.6 g/dL (32.0-36.0); MEAN CORPUSCULAR VOLUME 89.1 fL (79-99); MONOCYTES % (AUTO) 11.4 % (3.0-13.0); NEUTROPHILS % (AUTO) 78.2 % (40.0-77.0); PLATELET COUNT (AUTO) 245 K/uL (130-400); RED BLOOD CELL COUNT(AUTO) 2.94 MIL/uL (4.50-6.20); RED CELL DISTRIBUTION WIDTH 14.9 % (11.0-15.5)
[2017-11-12 04:09] LABS: CREATININE 4.7 mg/dL (0.5-1.5); POTASSIUM 4.3 mmol/L (3.5-5.1)
[2017-11-12] MEDS: INSULIN R PO SS1 SQ SCH ×4 (06:27→21:42)
[2017-11-12] MEDS: ACETAMINOPHEN 325 MG TAB PO PRN (06:29)
[2017-11-12] MEDS: MULTIVITAMIN WITH MINERALS TABLET PO SCH (08:33)
[2017-11-12] MEDS: HYDRALAZINE HCL 25 MG TABLET PO SCH ×2 (08:33→21:23)
[2017-11-12] MEDS: MAGNESIUM OXIDE 400 MG TABLET PO SCH ×2 (08:33→21:23)
[2017-11-12] MEDS: ALLOPURINOL 100 MG TABLET PO SCH (08:33)
[2017-11-12] MEDS: PREDNISONE 5 MG TABLET PO SCH (08:33)
[2017-11-12] MEDS: MYCOPHENOLATE MOFETIL 250 MG CAPSULE PO SCH ×2 (08:33→21:23)
[2017-11-12] MEDS: FERROUS SULFATE 325 MG TABLET.DR PO SCH ×2 (08:33→21:22)
[2017-11-12] MEDS: LABETALOL HCL 200 MG TABLET PO SCH ×2 (08:33→21:24)
[2017-11-12] MEDS: FOLIC ACID 1 MG TABLET PO SCH (08:33)
[2017-11-12] MEDS: PANTOPRAZOLE SODIUM 40 MG TABLET.DR PO SCH (08:33)
[2017-11-12] MEDS: **HM** VASCEPA 2GM PO SCH ×2 (08:34→21:00)
[2017-11-12] MEDS: **HM** VIT D3 2000 UNITS PO SCH (08:34)
[2017-11-12] MEDS: CYANOCOBALAMIN 5000 MCG SL SCH (08:34)
[2017-11-12] MEDS ORDERED: EPOETIN ALFA 10,000 UNIT/ML VIAL SQ SCH (16:15)
[2017-11-12] MEDS: STOOL SOFTNER PO SCH (21:00)
[2017-11-12] MEDS ORDERED: INSULIN GLARGINE 100 UNITS/ML 10 ML VIAL SQ SCH (21:00)
[2017-11-12] MEDS: FENOFIBRIC ACID PO SCH (21:00)
[2017-11-12] MEDS: FLUTICASONE PROPIONATE 50MCG/SPRAY 16 GM BOTTLE EN SCH (21:22)
[2017-11-12] MEDS: AMLODIPINE BESYLATE 5 MG TAB PO SCH (21:23)
[2017-11-12] MEDS: SENNOSIDES 8.6 MG TABLET PO SCH (21:24)
[2017-11-12] MEDS: ATORVASTATIN CALCIUM 40 MG TABLET PO SCH (21:24)
[2017-11-13] MEDS: SODIUM CHLORIDE 0.9% 1000ML 1,000 ML IV SCH ×2 (02:00→12:00)
[2017-11-13 03:51] LABS: BASOPHILS % (AUTO) 0.2 % (0.0-5.0); EOSINOPHILS % (AUTO) 0.9 % (0.0-8.0); HEMATOCRIT 25.2 % (42-54); LYMPHOCYTES % (AUTO) 7.9 % (21.0-51.0); MEAN CORPUSCULAR HEMOGLOBIN 30.9 pg (27.0-33.0); MEAN CORPUSCULAR HGB CONC 34.5 g/dL (32.0-36.0); MEAN CORPUSCULAR VOLUME 89.6 fL (79-99); MONOCYTES % (AUTO) 9.7 % (3.0-13.0); NEUTROPHILS % (AUTO) 81.3 % (40.0-77.0); PLATELET COUNT (AUTO) 253 K/uL (130-400); RED BLOOD CELL COUNT(AUTO) 2.81 MIL/uL (4.50-6.20); RED CELL DISTRIBUTION WIDTH 15.2 % (11.0-15.5); WHITE BLOOD COUNT (AUTO) 15.7 K/uL (4.8-10.8)
[2017-11-13 03:53] LABS: CREATININE 4.3 mg/dL (0.5-1.5); POTASSIUM 4.1 mmol/L (3.5-5.1)
[2017-11-13] MEDS: MEROPENEM 1 GM VIAL IVP SCH (03:54)
[2017-11-13 03:57] VITALS: BP 153/74
[2017-11-13] MEDS: INSULIN R PO SS1 SQ SCH ×2 (05:52→12:40)
[2017-11-13] MEDS: FOLIC ACID 1 MG TABLET PO SCH (08:24)
[2017-11-13] MEDS: PANTOPRAZOLE SODIUM 40 MG TABLET.DR PO SCH (08:24)
[2017-11-13] MEDS: MULTIVITAMIN WITH MINERALS TABLET PO SCH (08:24)
[2017-11-13] MEDS: HYDRALAZINE HCL 25 MG TABLET PO SCH (08:24)
[2017-11-13] MEDS: MYCOPHENOLATE MOFETIL 250 MG CAPSULE PO SCH (08:24)
[2017-11-13] MEDS: FERROUS SULFATE 325 MG TABLET.DR PO SCH (08:25)
[2017-11-13] MEDS: MAGNESIUM OXIDE 400 MG TABLET PO SCH (08:25)
[2017-11-13] MEDS: PREDNISONE 5 MG TABLET PO SCH (08:25)
[2017-11-13] MEDS: ALLOPURINOL 100 MG TABLET PO SCH (08:25)
[2017-11-13] MEDS: LABETALOL HCL 200 MG TABLET PO SCH (08:25)
[2017-11-13] MEDS: **HM** VASCEPA 2GM PO SCH (08:30)
[2017-11-13] MEDS: **HM** VIT D3 2000 UNITS PO SCH (08:31)
[2017-11-13] MEDS: CYANOCOBALAMIN 5000 MCG SL SCH (08:31)
[2017-11-13 09:21] VITALS: BP 160/73
[2017-11-13 13:34] VITALS: BP 142/72
[2017-11-13 16:56] VITALS: BP 133/62
[2017-12-03] MEDS ORDERED: ROSU20TA38 PO (03:14)
[2017-12-03] MEDS ORDERED: LABE200T PO (03:14)
== END 2017-11-13 17:15 | disposition home or self-care (01) | DRG 871 ==
LOC: EDH 21:14 → EDHIP 11-09 01:45 → 3AH 11-09 21:30
PROVIDERS: ADMIT Internal Medicine Nephrology; ATTEND Internal Medicine Nephrology
DX: A41.9 Sepsis, unspecified organism (principal); N18.6 End stage renal disease; N17.9 Acute kidney failure, unspecified; E11.22 Type 2 diabetes mellitus with diabetic chronic kidney disease; C61 Malignant neoplasm of prostate; Z94.0 Kidney transplant status; N39.0 Urinary tract infection, site not specified; D63.1 Anemia in chronic kidney disease; N12 Tubulo-interstitial nephritis, not specified as acute or chronic; D64.9 Anemia, unspecified; I12.0 Hypertensive chronic kidney disease with stage 5 chronic kidney disease or end stage renal disease; E78.5 Hyperlipidemia, unspecified; E66.9 Obesity, unspecified; J45.909 Unspecified asthma, uncomplicated; N40.0 Benign prostatic hyperplasia without lower urinary tract symptoms; T38.0X5A Adverse effect of glucocorticoids and synthetic analogues, initial encounter; Z85.51 Personal history of malignant neoplasm of bladder; Z87.440 Personal history of urinary (tract) infections; Z68.32 Body mass index [BMI] 32.0-32.9, adult; Z80.0 Family history of malignant neoplasm of digestive organs; Z80.8 Family history of malignant neoplasm of other organs or systems; Z82.49 Family history of ischemic heart disease and other diseases of the circulatory system; Z83.3 Family history of diabetes mellitus
CPT/HCPCS: 36415; 71045; 76770; 80048; 80053; 81001; 82948; 83605; 85025; 85027; 87040; 87804; A4218; C9113; J0696; J0885; J1815; J2185; J7030; J7512; J7517

== ENCOUNTER 2017-12-02 22:17 | Inpatient (IN) | payer MEDICARE ==
[~2017-12-02] VITALS: Ht 170.2 cm; Wt 90.0 kg
[~2017-12-02 22:17] MED LIST changes: -LABE200T PO; +LABE200T5 PO; +ROSU20TA30 PO; -ROSU20TA38 PO
[2017-12-02 22:53] LABS: BASOPHILS % (AUTO) 0.4 % (0.0-5.0); EOSINOPHILS % (AUTO) 1.2 % (0.0-8.0); HEMATOCRIT 27.1 % (42-54); LYMPHOCYTES % (AUTO) 6.3 % (21.0-51.0); MEAN CORPUSCULAR HEMOGLOBIN 28.8 pg (27.0-33.0); MEAN CORPUSCULAR HGB CONC 32.6 g/dL (32.0-36.0); MEAN CORPUSCULAR VOLUME 88.1 fL (79-99); MONOCYTES % (AUTO) 12.8 % (3.0-13.0); NEUTROPHILS % (AUTO) 79.3 % (40.0-77.0); PLATELET COUNT (AUTO) 235 K/uL (130-400); RED BLOOD CELL COUNT(AUTO) 3.07 MIL/uL (4.50-6.20); RED CELL DISTRIBUTION WIDTH 15.1 % (11.0-15.5); WHITE BLOOD COUNT (AUTO) 15.5 K/uL (4.8-10.8)
[2017-12-02 23:07] LABS: CREATININE 4.2 mg/dL (0.5-1.5); POTASSIUM 3.9 mmol/L (3.5-5.1)
[2017-12-02 23:12] LABS: ALBUMIN 2.3 g/dL (3.5-5.0); BILIRUBIN,TOTAL 0.2 mg/dL (0.2-1.0); TOTAL PROTEIN, SERUM 5.5 g/dL (6.0-8.3)
[2017-12-02 23:54] LABS: APPEARANCE,URINE Cloudy (CLEAR); BILIRUBIN,URINE Negative (NEGATIVE); COLOR,URINE Yellow (YELLOW); GLUCOSE, URINE (UA) TRACE mg/dL (NEGATIVE); KETONES,URINE Negative (NEGATIVE); LEUKOCYTE ESTERASE ,URINE Moderate (NEGATIVE); NITRATE,URINE Negative (NEGATIVE); OCCULT BLOOD,URINE Small (NEGATIVE); PROTEIN,URINE 300 (NEGATIVE); UROBILINOGEN,URINE 0.2 mg/dL (0.2-1.0)
[2017-12-03 00:10] LABS: BACTERIA,URINE Few /HPF (None Seen); MUCUS,URINE Moderate LPF (None Seen); SQUAMOUS EPITHELIAL CELL,UR Few /HPF (0-2); WBC,URINE TNTC /HPF (0-1)
[2017-12-03] MEDS ORDERED: SODIUM CHLORIDE 0.9% 1000ML 1,000 ML IV ONE (00:55)
[2017-12-03] MEDS ORDERED: MEROPENEM 1 GM VIAL ONE (00:55)
[2017-12-03 01:15] VITALS: BP 158/61
[2017-12-03 03:00] VITALS: BP 156/62
[2017-12-03] MEDS ORDERED: GLIP5TAB11 PO (03:14)
[2017-12-03] MEDS ORDERED: HYDR-4153 PO (03:14)
[2017-12-03] MEDS ORDERED: ICOS1CAP PO (03:14)
[2017-12-03] MEDS ORDERED: FOLI0.8T PO (03:14)
[2017-12-03] MEDS ORDERED: MULT-1258 PO (03:14)
[2017-12-03] MEDS ORDERED: OMEG-112 PO (03:14)
[2017-12-03] MEDS ORDERED: PRED5TAB PO (03:14)
[2017-12-03] MEDS ORDERED: FLUT16H NASAL (03:14)
[2017-12-03] MEDS ORDERED: CYAN50004 SL (03:14)
[2017-12-03] MEDS ORDERED: LORA10TA7 PO (03:14)
[2017-12-03] MEDS ORDERED: ALLO100T PO (03:14)
[2017-12-03] MEDS ORDERED: MYCO500T PO (03:14)
[2017-12-03] MEDS ORDERED: MAGN400T29 PO (03:14)
[2017-12-03] MEDS ORDERED: AMOX1TAB16 PO (03:14)
[2017-12-03] MEDS ORDERED: FERR325T22 PO (03:14)
[2017-12-03] MEDS ORDERED: MYCO250C36 PO (03:14)
[2017-12-03] MEDS ORDERED: OLOP2.5D OU (03:14)
[2017-12-03] MEDS ORDERED: INSU3INS3 SQ (03:14)
[2017-12-03] MEDS ORDERED: LABE200T5 PO (03:14)
[2017-12-03] MEDS ORDERED: CHOL200012 PO (03:14)
[2017-12-03] MEDS ORDERED: ROSU20TA30 PO (03:14)
[2017-12-03] MEDS ORDERED: AMLO5TAB2 PO (03:14)
[2017-12-03] MEDS ORDERED: INSU200I SQ (03:14)
[2017-12-03] MEDS ORDERED: FENO90CA PO (03:14)
[2017-12-03] MEDS ORDERED: SITA25TA5 PO (03:14)
[2017-12-03] MEDS ORDERED: OMEP40CA37 PO (03:14)
[2017-12-03] MEDS ORDERED: DEXTROSE 50%-WATER 50 ML DISP.SYRIN IV PRN (03:15)
[2017-12-03] MEDS ORDERED: ONDANSETRON HCL MDV 20ML 2 MG/ML VIAL IVP PRN (03:15)
[2017-12-03] MEDS ORDERED: GLUCAGON 1MG KIT 1 MG ML IM PRN (03:15)
[2017-12-03] MEDS: SODIUM CHLORIDE 0.9% 1000ML 1,000 ML IV SCH (03:15)
[2017-12-03 04:47] LABS: HEMATOCRIT 26.9 % (42-54); MEAN CORPUSCULAR HEMOGLOBIN 29.2 pg (27.0-33.0); MEAN CORPUSCULAR HGB CONC 33.1 g/dL (32.0-36.0); MEAN CORPUSCULAR VOLUME 88.4 fL (79-99); PLATELET COUNT (AUTO) 235 K/uL (130-400); RED BLOOD CELL COUNT(AUTO) 3.04 MIL/uL (4.50-6.20); RED CELL DISTRIBUTION WIDTH 15.1 % (11.0-15.5); WHITE BLOOD COUNT (AUTO) 15.8 K/uL (4.8-10.8)
[2017-12-03 04:54] LABS: ALBUMIN 2.2 g/dL (3.5-5.0); BILIRUBIN,TOTAL 0.3 mg/dL (0.2-1.0); CREATININE 4.1 mg/dL (0.5-1.5); TOTAL PROTEIN, SERUM 5.4 g/dL (6.0-8.3)
[2017-12-03] MEDS: INSULIN R PO SS1 SQ SCH ×4 (06:34→21:00)
[2017-12-03] MEDS: MEROPENEM 1 GM VIAL IVP SCH ×2 (06:34→16:00)
[2017-12-03 08:21] VITALS: BP 182/78
[2017-12-03] MEDS: **HM** VASCEPA 2GM PO SCH ×2 (09:00→21:00)
[2017-12-03] MEDS ORDERED: OLOPATADINE HCL 0.1% 5ML DROPS OU PRN (09:00)
[2017-12-03] MEDS: **HM** VIT D3 2000 UNITS PO SCH (09:00)
[2017-12-03] MEDS ORDERED: MYCOPHENOLATE MOFETIL 250 MG CAPSULE PO SCH ×2 (09:00)
[2017-12-03] MEDS: PREDNISONE 5 MG TABLET PO SCH (09:06)
[2017-12-03] MEDS: FERROUS SULFATE 325 MG TABLET.DR PO SCH ×2 (09:07→22:51)
[2017-12-03] MEDS: FISH OIL 1000 MG/CAP PO SCH ×2 (09:07→22:50)
[2017-12-03] MEDS: CYANOCOBALAMIN (VITAMIN B-12) 1,000 MCG TABLET PO SCH (09:09)
[2017-12-03] MEDS: LABETALOL HCL 200 MG TABLET PO SCH ×2 (09:09→22:51)
[2017-12-03] MEDS: MULTIVITAMIN WITH MINERALS TABLET PO SCH (09:10)
[2017-12-03] MEDS: ALLOPURINOL 100 MG TABLET PO SCH (09:10)
[2017-12-03] MEDS: FOLIC ACID 1 MG TABLET PO SCH (09:10)
[2017-12-03] MEDS: PANTOPRAZOLE SODIUM 40 MG TABLET.DR PO SCH (09:10)
[2017-12-03] MEDS: FLUTICASONE PROPIONATE 50MCG/SPRAY 16 GM BOTTLE EN SCH (09:11)
[2017-12-03] MEDS: MAGNESIUM OXIDE 400 MG TABLET PO SCH ×2 (09:11→22:51)
[2017-12-03] MEDS: HYDRALAZINE HCL 25 MG TABLET PO SCH ×2 (09:11→22:52)
[2017-12-03 11:44] VITALS: BP 141/70
[2017-12-03 16:02] VITALS: BP 158/72
[2017-12-03 19:35] VITALS: BP 128/65
[2017-12-03] MEDS: ANTARA PO SCH (21:00)
[2017-12-03] MEDS: ATORVASTATIN CALCIUM 40 MG TABLET PO SCH (22:50)
[2017-12-03] MEDS: MYCOPHENOLATE MOFETIL 250 MG CAPSULE PO SCH (22:51)
[2017-12-03] MEDS: LORATADINE 10 MG TABLET PO SCH (22:52)
[2017-12-03] MEDS: AMLODIPINE BESYLATE 5 MG TAB PO SCH (22:52)
[2017-12-04 00:05] VITALS: BP_SYST 132; BP_SYST 153; BP_DIAS 66; BP_DIAS 73
[2017-12-04] MEDS: ACETAMINOPHEN 325 MG TAB PO PRN ×2 (01:11→20:08)
[2017-12-04] MEDS: SODIUM CHLORIDE 0.9% 1000ML 1,000 ML IV SCH ×2 (01:16→11:15)
[2017-12-04 04:03] VITALS: BP 151/68
[2017-12-04 04:55] LABS: BASOPHILS % (AUTO) 0.4 % (0.0-5.0); EOSINOPHILS % (AUTO) 0.6 % (0.0-8.0); LYMPHOCYTES % (AUTO) 8.4 % (21.0-51.0); MEAN CORPUSCULAR HEMOGLOBIN 29.3 pg (27.0-33.0); MEAN CORPUSCULAR VOLUME 88.7 fL (79-99); MONOCYTES % (AUTO) 13.1 % (3.0-13.0); NEUTROPHILS % (AUTO) 77.5 % (40.0-77.0); PLATELET COUNT (AUTO) 238 K/uL (130-400); RED BLOOD CELL COUNT(AUTO) 2.93 MIL/uL (4.50-6.20); RED CELL DISTRIBUTION WIDTH 15.2 % (11.0-15.5); WHITE BLOOD COUNT (AUTO) 11.1 K/uL (4.8-10.8)
[2017-12-04 05:05] LABS: CREATININE 4.3 mg/dL (0.5-1.5); POTASSIUM 4.2 mmol/L (3.5-5.1)
[2017-12-04] MEDS: MEROPENEM 1 GM VIAL IVP SCH ×2 (05:18→17:57)
[2017-12-04] MEDS: INSULIN R PO SS1 SQ SCH ×4 (06:53→22:22)
[2017-12-04 08:23] VITALS: BP 169/78
[2017-12-04] MEDS: **HM** VASCEPA 2GM PO SCH ×2 (09:00→21:00)
[2017-12-04] MEDS: CYANOCOBALAMIN (VITAMIN B-12) 1,000 MCG TABLET PO SCH (09:00)
[2017-12-04] MEDS: **HM** VIT D3 2000 UNITS PO SCH (09:00)
[2017-12-04] MEDS: ALLOPURINOL 100 MG TABLET PO SCH (10:44)
[2017-12-04] MEDS: PREDNISONE 5 MG TABLET PO SCH (10:44)
[2017-12-04] MEDS: FISH OIL 1000 MG/CAP PO SCH ×2 (10:44→20:09)
[2017-12-04] MEDS: PANTOPRAZOLE SODIUM 40 MG TABLET.DR PO SCH (10:44)
[2017-12-04] MEDS: LABETALOL HCL 200 MG TABLET PO SCH ×2 (10:44→20:09)
[2017-12-04] MEDS: FERROUS SULFATE 325 MG TABLET.DR PO SCH ×2 (10:44→20:09)
[2017-12-04] MEDS: MULTIVITAMIN WITH MINERALS TABLET PO SCH (10:45)
[2017-12-04] MEDS: FOLIC ACID 1 MG TABLET PO SCH (10:45)
[2017-12-04] MEDS: MYCOPHENOLATE MOFETIL 250 MG CAPSULE PO SCH ×2 (10:45→20:08)
[2017-12-04] MEDS: MAGNESIUM OXIDE 400 MG TABLET PO SCH ×2 (10:46→20:09)
[2017-12-04] MEDS: HYDRALAZINE HCL 25 MG TABLET PO SCH ×2 (10:46→20:09)
[2017-12-04 12:00] VITALS: BP 168/81
[2017-12-04 17:06] VITALS: BP 165/78
[2017-12-04 19:05] VITALS: BP 168/81
[2017-12-04] MEDS: ATORVASTATIN CALCIUM 40 MG TABLET PO SCH (20:08)
[2017-12-04] MEDS: AMLODIPINE BESYLATE 5 MG TAB PO SCH (20:08)
[2017-12-04] MEDS: LORATADINE 10 MG TABLET PO SCH (20:09)
[2017-12-04] MEDS: FLUTICASONE PROPIONATE 50MCG/SPRAY 16 GM BOTTLE EN SCH (20:10)
[2017-12-04] MEDS: ANTARA PO SCH (21:00)
[2017-12-05 04:00] VITALS: BP 153/75
[2017-12-05 04:09] LABS: BASOPHILS % (AUTO) 0.6 % (0.0-5.0); EOSINOPHILS % (AUTO) 1.8 % (0.0-8.0); HEMATOCRIT 25.5 % (42-54); LYMPHOCYTES % (AUTO) 11.6 % (21.0-51.0); MEAN CORPUSCULAR HEMOGLOBIN 30.7 pg (27.0-33.0); MEAN CORPUSCULAR HGB CONC 34.9 g/dL (32.0-36.0); MEAN CORPUSCULAR VOLUME 88.1 fL (79-99); MONOCYTES % (AUTO) 13.7 % (3.0-13.0); NEUTROPHILS % (AUTO) 72.3 % (40.0-77.0); PLATELET COUNT (AUTO) 248 K/uL (130-400); RED BLOOD CELL COUNT(AUTO) 2.89 MIL/uL (4.50-6.20); RED CELL DISTRIBUTION WIDTH 15.2 % (11.0-15.5); WHITE BLOOD COUNT (AUTO) 7.2 K/uL (4.8-10.8)
[2017-12-05 04:17] LABS: CREATININE 4.4 mg/dL (0.5-1.5); POTASSIUM 4.4 mmol/L (3.5-5.1)
[2017-12-05] MEDS: MEROPENEM 1 GM VIAL IVP SCH ×2 (04:18→16:59)
[2017-12-05] MEDS: INSULIN R PO SS1 SQ SCH ×4 (06:29→21:53)
[2017-12-05 08:05] VITALS: BP 156/72
[2017-12-05] MEDS: **HM** VASCEPA 2GM PO SCH ×2 (09:00→21:00)
[2017-12-05] MEDS: **HM** VIT D3 2000 UNITS PO SCH (09:00)
[2017-12-05] MEDS: CYANOCOBALAMIN (VITAMIN B-12) 1,000 MCG TABLET PO SCH (09:00)
[2017-12-05] MEDS: PANTOPRAZOLE SODIUM 40 MG TABLET.DR PO SCH (09:16)
[2017-12-05] MEDS: SODIUM CHLORIDE 0.9% 1000ML 1,000 ML IV SCH ×2 (09:16→16:59)
[2017-12-05] MEDS: HYDRALAZINE HCL 25 MG TABLET PO SCH ×2 (09:17→20:29)
[2017-12-05] MEDS: PREDNISONE 5 MG TABLET PO SCH (09:18)
[2017-12-05] MEDS: ALLOPURINOL 100 MG TABLET PO SCH (09:18)
[2017-12-05] MEDS: MYCOPHENOLATE MOFETIL 250 MG CAPSULE PO SCH ×2 (09:18→20:29)
[2017-12-05] MEDS: LABETALOL HCL 200 MG TABLET PO SCH ×2 (09:18→20:29)
[2017-12-05] MEDS: FOLIC ACID 1 MG TABLET PO SCH (09:20)
[2017-12-05] MEDS: MAGNESIUM OXIDE 400 MG TABLET PO SCH ×2 (09:20→20:30)
[2017-12-05] MEDS: MULTIVITAMIN WITH MINERALS TABLET PO SCH (09:20)
[2017-12-05] MEDS: FISH OIL 1000 MG/CAP PO SCH ×2 (09:20→20:30)
[2017-12-05] MEDS: FERROUS SULFATE 325 MG TABLET.DR PO SCH ×2 (09:20→20:29)
[2017-12-05 11:45] VITALS: BP 155/78
[2017-12-05 16:16] VITALS: BP 150/75
[2017-12-05 19:10] VITALS: BP 157/76
[2017-12-05] MEDS: ATORVASTATIN CALCIUM 40 MG TABLET PO SCH (20:29)
[2017-12-05] MEDS: LORATADINE 10 MG TABLET PO SCH (20:29)
[2017-12-05] MEDS: FLUTICASONE PROPIONATE 50MCG/SPRAY 16 GM BOTTLE EN SCH (20:30)
[2017-12-05] MEDS: AMLODIPINE BESYLATE 5 MG TAB PO SCH (20:30)
[2017-12-05] MEDS: ANTARA PO SCH (21:00)
[2017-12-05 23:05] VITALS: BP 139/76
[2017-12-06 03:28] VITALS: BP 160/80
[2017-12-06] MEDS: MEROPENEM 1 GM VIAL IVP SCH (04:17)
[2017-12-06] MEDS: INSULIN R PO SS1 SQ SCH ×4 (07:06→21:45)
[2017-12-06 07:40] VITALS: BP 169/85
[2017-12-06] MEDS ORDERED: EPOETIN ALFA 10,000 UNIT/ML VIAL SQ SCH ×2 (07:45→08:30)
[2017-12-06 08:33] LABS: HEMATOCRIT 27.7 % (42-54); MEAN CORPUSCULAR HEMOGLOBIN 29.2 pg (27.0-33.0); MEAN CORPUSCULAR HGB CONC 33.1 g/dL (32.0-36.0); MEAN CORPUSCULAR VOLUME 88.2 fL (79-99); PLATELET COUNT (AUTO) 279 K/uL (130-400); RED BLOOD CELL COUNT(AUTO) 3.14 MIL/uL (4.50-6.20); WHITE BLOOD COUNT (AUTO) 7.3 K/uL (4.8-10.8)
[2017-12-06 08:37] LABS: POTASSIUM 4.1 mmol/L (3.5-5.1)
[2017-12-06] MEDS: CYANOCOBALAMIN (VITAMIN B-12) 1,000 MCG TABLET PO SCH (09:00)
[2017-12-06] MEDS: **HM** VIT D3 2000 UNITS PO SCH (09:00)
[2017-12-06] MEDS ORDERED: CEFEPIME 1GM+NS 50ML 50 ML IV SCH (09:00)
[2017-12-06] MEDS: **HM** VASCEPA 2GM PO SCH ×2 (09:00→20:25)
[2017-12-06] MEDS: FISH OIL 1000 MG/CAP PO SCH ×2 (10:22→20:08)
[2017-12-06] MEDS: MYCOPHENOLATE MOFETIL 250 MG CAPSULE PO SCH ×2 (10:22→20:09)
[2017-12-06] MEDS: LABETALOL HCL 200 MG TABLET PO SCH ×2 (10:22→20:07)
[2017-12-06] MEDS: PANTOPRAZOLE SODIUM 40 MG TABLET.DR PO SCH (10:23)
[2017-12-06] MEDS: MULTIVITAMIN WITH MINERALS TABLET PO SCH (10:23)
[2017-12-06] MEDS: MAGNESIUM OXIDE 400 MG TABLET PO SCH ×2 (10:23→20:08)
[2017-12-06] MEDS: FERROUS SULFATE 325 MG TABLET.DR PO SCH ×2 (10:23→20:10)
[2017-12-06] MEDS: PREDNISONE 5 MG TABLET PO SCH (10:23)
[2017-12-06] MEDS: HYDRALAZINE HCL 25 MG TABLET PO SCH ×2 (10:23→20:09)
[2017-12-06] MEDS: ALLOPURINOL 100 MG TABLET PO SCH (10:23)
[2017-12-06] MEDS: FOLIC ACID 1 MG TABLET PO SCH (10:24)
[2017-12-06] MEDS: CEFEPIME HCL 1 GM VIAL IVP SCH ×2 (10:48→20:18)
[2017-12-06] MEDS: SODIUM CHLORIDE 0.9% 1000ML 1,000 ML IV SCH (10:49)
[2017-12-06 12:14] VITALS: BP 125/66
[2017-12-06 15:59] VITALS: BP 144/70
[2017-12-06] MEDS: ACETAMINOPHEN 325 MG TAB PO PRN (17:20)
[2017-12-06 19:05] VITALS: BP 163/78
[2017-12-06] MEDS: AMLODIPINE BESYLATE 5 MG TAB PO SCH (20:08)
[2017-12-06] MEDS: LORATADINE 10 MG TABLET PO SCH (20:08)
[2017-12-06] MEDS: FLUTICASONE PROPIONATE 50MCG/SPRAY 16 GM BOTTLE EN SCH (20:09)
[2017-12-06] MEDS: ATORVASTATIN CALCIUM 40 MG TABLET PO SCH (20:09)
[2017-12-06] MEDS: ANTARA PO SCH (20:25)
[2017-12-07 00:05] VITALS: BP 171/80
[2017-12-07 04:00] VITALS: BP 160/78
[2017-12-07 06:25] LABS: EOSINOPHILS % (AUTO) 6.2 % (0.0-8.0); HEMATOCRIT 26.5 % (42-54); LYMPHOCYTES % (AUTO) 24.1 % (21.0-51.0); MEAN CORPUSCULAR HEMOGLOBIN 30.6 pg (27.0-33.0); MEAN CORPUSCULAR VOLUME 87.4 fL (79-99); MONOCYTES % (AUTO) 9.4 % (3.0-13.0); NEUTROPHILS % (AUTO) 59.3 % (40.0-77.0); PLATELET COUNT (AUTO) 300 K/uL (130-400); RED BLOOD CELL COUNT(AUTO) 3.04 MIL/uL (4.50-6.20); RED CELL DISTRIBUTION WIDTH 14.9 % (11.0-15.5); WHITE BLOOD COUNT (AUTO) 7.8 K/uL (4.8-10.8)
[2017-12-07] MEDS: INSULIN R PO SS1 SQ SCH ×4 (06:43→21:38)
[2017-12-07] MEDS: SODIUM CHLORIDE 0.9% 1000ML 1,000 ML IV SCH ×2 (07:15→15:56)
[2017-12-07] MEDS: **HM** VASCEPA 2GM PO SCH ×2 (07:51→21:00)
[2017-12-07] MEDS: **HM** VIT D3 2000 UNITS PO SCH (07:51)
[2017-12-07 08:00] VITALS: BP 169/64
[2017-12-07] MEDS ORDERED: INSULIN DETEMIR 10ML 100 UNIT/ML 10ML SQ SCH (09:00)
[2017-12-07] MEDS: CYANOCOBALAMIN (VITAMIN B-12) 1,000 MCG TABLET PO SCH (09:00)
[2017-12-07] MEDS: CEFEPIME HCL 1 GM VIAL IVP SCH ×2 (09:55→21:28)
[2017-12-07] MEDS: FISH OIL 1000 MG/CAP PO SCH ×2 (09:56→21:29)
[2017-12-07] MEDS: HYDRALAZINE HCL 25 MG TABLET PO SCH ×2 (09:56→21:28)
[2017-12-07] MEDS: ALLOPURINOL 100 MG TABLET PO SCH (09:57)
[2017-12-07] MEDS: FOLIC ACID 1 MG TABLET PO SCH (09:57)
[2017-12-07] MEDS: LABETALOL HCL 200 MG TABLET PO SCH ×2 (09:57→21:29)
[2017-12-07] MEDS: MULTIVITAMIN WITH MINERALS TABLET PO SCH (09:57)
[2017-12-07] MEDS: MAGNESIUM OXIDE 400 MG TABLET PO SCH ×2 (09:57→21:30)
[2017-12-07] MEDS: FERROUS SULFATE 325 MG TABLET.DR PO SCH ×2 (09:58→21:30)
[2017-12-07] MEDS: PANTOPRAZOLE SODIUM 40 MG TABLET.DR PO SCH (09:58)
[2017-12-07] MEDS: PREDNISONE 5 MG TABLET PO SCH (09:58)
[2017-12-07] MEDS: MYCOPHENOLATE MOFETIL 250 MG CAPSULE PO SCH ×2 (09:58→21:28)
[2017-12-07 12:00] VITALS: BP 101/56
[2017-12-07 13:40] LABS: INR 1.01 (0.85-1.15); PROTHROMBIN TIME 10.6 SEC (9.6-11.6)
[2017-12-07 16:00] VITALS: BP 152/71
[2017-12-07 19:25] VITALS: BP 154/66
[2017-12-07] MEDS: ANTARA PO SCH (21:00)
[2017-12-07] MEDS: ATORVASTATIN CALCIUM 40 MG TABLET PO SCH (21:29)
[2017-12-07] MEDS: LORATADINE 10 MG TABLET PO SCH (21:29)
[2017-12-07] MEDS: AMLODIPINE BESYLATE 5 MG TAB PO SCH (21:30)
[2017-12-07] MEDS: FLUTICASONE PROPIONATE 50MCG/SPRAY 16 GM BOTTLE EN SCH (21:31)
[2017-12-08] VITALS: BP 155/73
[2017-12-08] MEDS: SODIUM CHLORIDE 0.9% 1000ML 1,000 ML IV SCH (03:15)
[2017-12-08] MEDS: INSULIN R PO SS1 SQ SCH ×3 (06:00→18:07)
[2017-12-08 08:00] VITALS: BP 175/81
[2017-12-08] MEDS: **HM** VIT D3 2000 UNITS PO SCH (09:00)
[2017-12-08] MEDS: **HM** VASCEPA 2GM PO SCH (09:00)
[2017-12-08] MEDS: CYANOCOBALAMIN (VITAMIN B-12) 1,000 MCG TABLET PO SCH (09:00)
[2017-12-08] MEDS: FERROUS SULFATE 325 MG TABLET.DR PO SCH (09:43)
[2017-12-08] MEDS: HYDRALAZINE HCL 25 MG TABLET PO SCH (09:43)
[2017-12-08] MEDS: PREDNISONE 5 MG TABLET PO SCH (09:43)
[2017-12-08] MEDS: MULTIVITAMIN WITH MINERALS TABLET PO SCH (09:44)
[2017-12-08] MEDS: FOLIC ACID 1 MG TABLET PO SCH (09:44)
[2017-12-08] MEDS: MYCOPHENOLATE MOFETIL 250 MG CAPSULE PO SCH (09:44)
[2017-12-08] MEDS: PANTOPRAZOLE SODIUM 40 MG TABLET.DR PO SCH (09:45)
[2017-12-08] MEDS: ALLOPURINOL 100 MG TABLET PO SCH (09:45)
[2017-12-08] MEDS: FISH OIL 1000 MG/CAP PO SCH (09:45)
[2017-12-08] MEDS: MAGNESIUM OXIDE 400 MG TABLET PO SCH (09:45)
[2017-12-08] MEDS: LABETALOL HCL 200 MG TABLET PO SCH (09:46)
[2017-12-08] MEDS: CEFEPIME HCL 1 GM VIAL IVP SCH (09:51)
[2017-12-08] MEDS ORDERED: INSULIN GLARGINE 100 UNITS/ML 10 ML VIAL SQ SCH (10:15)
[2017-12-08 11:32] VITALS: BP 149/70
[2017-12-08 16:00] VITALS: BP 147/71
== END 2017-12-08 20:10 | disposition home health service (06) | DRG 872 ==
LOC: EDH 22:17 → OBSVTOIN 22:40 → EDHIP 22:40 → 3CH 12-03 01:30
PROVIDERS: ADMIT Internal Medicine Nephrology; ATTEND Internal Medicine Nephrology
DX: A41.9 Sepsis, unspecified organism (principal); E44.0 Moderate protein-calorie malnutrition; E11.22 Type 2 diabetes mellitus with diabetic chronic kidney disease; N18.4 Chronic kidney disease, stage 4 (severe); N17.9 Acute kidney failure, unspecified; E11.65 Type 2 diabetes mellitus with hyperglycemia; D63.1 Anemia in chronic kidney disease; C61 Malignant neoplasm of prostate; Z94.0 Kidney transplant status; N39.0 Urinary tract infection, site not specified; E78.5 Hyperlipidemia, unspecified; R53.81 Other malaise; E66.9 Obesity, unspecified; I12.9 Hypertensive chronic kidney disease with stage 1 through stage 4 chronic kidney disease, or unspecified chronic kidney disease; J45.909 Unspecified asthma, uncomplicated; N40.1 Benign prostatic hyperplasia with lower urinary tract symptoms; Z16.24 Resistance to multiple antibiotics; Z79.4 Long term (current) use of insulin; Z68.31 Body mass index [BMI] 31.0-31.9, adult; Z87.440 Personal history of urinary (tract) infections; Z85.51 Personal history of malignant neoplasm of bladder; Z83.3 Family history of diabetes mellitus; Z82.49 Family history of ischemic heart disease and other diseases of the circulatory system
CPT/HCPCS: 36415; 71045; 80048; 80053; 81001; 82948; 83605; 85025; 85027; 85610; 87040; 87088; 87186; A4218; C9113; J0692; J0885; J1815; J2185; J7030; J7512; J7517